=== PATIENT | male | born 1965 | race African-American/Black ===

== ENCOUNTER 2022-07-22 10:04 | Inpatient (IN) | payer OTHER ==
[2022-07-22 11:01] VITALS: BMI 28.7
[2022-07-22] MEDS ORDERED: DICYCLOMINE HCL 10 MG CAPSULE PO PRN (11:43)
[2022-07-22] MEDS ORDERED: NICOTINE 10 MG CARTRIDGE (INHALER) IH PRN (11:43)
[2022-07-22] MEDS ORDERED: IBUPROFEN 400 MG TABLET (FP) PO PRN (11:43)
[2022-07-22] MEDS ORDERED: NICOTINE POLACRILEX 2 MG GUM BUC PRN (11:43)
[2022-07-22] MEDS ORDERED: MAG HYDROX/AL HYDROX/SIMETH 30 ML UNIT-DOSE CUP PO PRN (11:43)
[2022-07-22] MEDS ORDERED: MAGNESIUM HYDROX 2400MG/30ML ORAL SUSPENSION 30 ML CUP PO PRN (11:43)
[2022-07-22] MEDS ORDERED: POLYETHYLENE GLYCOL (HEALTHYLAX) 3350 17 GM PACKET PO PRN (11:43)
[2022-07-22] MEDS ORDERED: BENZOCAINE/MENTHOL (CHLORASEPTIC ) LOZENGE MM PRN (11:43)
[2022-07-22] MEDS ORDERED: ACETAMINOPHEN 325 MG TABLET (FP) PO PRN ×2 (11:43)
[2022-07-22] MEDS ORDERED: BISMUTH SUBSALICYLATE 262 MG/15 ML BTL PO PRN (11:43)
[2022-07-22] MEDS: amLODIPine BESYLATE 10 MG TABLET (FP) PO SCH (13:17)
[2022-07-22] MEDS: ASPIRIN 81 MG CHEWABLE TABLETS PO SCH (13:17)
[2022-07-22] MEDS: METHOCARBAMOL 500 MG TABLET PO PRN (13:18)
[2022-07-22] MEDS: hydrOXYzine PAMOATE 25 MG CAPSULE (FP) PO PRN (13:18)
[2022-07-22] MEDS: NICOTINE 14 MG/24 HOURS TOPICAL PATCH TD SCH (13:21)
[2022-07-22] MEDS: MELATONIN 5 MG TABLETS PO SCH (22:41)
[2022-07-22] MEDS: THIAMINE HCL 100 MG TABLET (FP) PO SCH (22:42)
[2022-07-22] MEDS: MINERAL OIL/PETROLAT/WATER TOPICAL CREAM 113 GM JAR TP SCH (22:43)
[2022-07-23] MEDS: MINERAL OIL/PETROLAT/WATER TOPICAL CREAM 113 GM JAR TP SCH ×2 (10:06→22:50)
[2022-07-23] MEDS: diazePAM 5 MG TABLET PO SCH ×3 (10:06→22:50)
[2022-07-23] MEDS: ONDANSETRON *ODT* 4 MG TABLET SL PRN (10:06)
[2022-07-23] MEDS: amLODIPine BESYLATE 10 MG TABLET (FP) PO SCH (10:06)
[2022-07-23] MEDS: ASPIRIN 81 MG CHEWABLE TABLETS PO SCH (10:06)
[2022-07-23] MEDS: PRENATAL VITAMINS W/ FOLIC ACID TABLET (FP) PO SCH (10:06)
[2022-07-23] MEDS: NICOTINE 14 MG/24 HOURS TOPICAL PATCH TD SCH (10:11)
[2022-07-23 12:25] LABS: HEMATOCRIT 39.4 % (35.4-49); HEMOGLOBIN 12.9 GM/dL (11.7-16.9); MCHC 32.8 g/dl (32.0-35.9); MEAN CELL VOLUME 97.4 fl (80-96); MEAN PLT VOLUME 7.9 fl (7.5-11.1); PLATELET COUNT 230 10^3/uL (134-434); RBC 4.04 M/mm3 (4.00-5.60); RDW 13.5 % (11.9-15.9)
[2022-07-23 12:51] LABS: BLOOD UREA NITROGEN 20.7 mg/dL (7-18); CALCIUM 8.9 mg/dL (8.5-10.1)
[2022-07-23 12:52] LABS: ALBUMIN 3.1 g/dl (3.4-5.0)
[2022-07-23 12:55] LABS: CREATININE 0.8 mg/dL (0.55-1.3)
[2022-07-23 12:57] LABS: BILIRUBIN,TOTAL 0.4 mg/dL (0.2-1); TOT PROT 6.1 g/dl (6.4-8.2)
[2022-07-23] MEDS: THIAMINE HCL 100 MG TABLET (FP) PO SCH (22:48)
[2022-07-23] MEDS: MELATONIN 5 MG TABLETS PO SCH (22:50)
[2022-07-24] MEDS: diazePAM 5 MG TABLET PO SCH ×4 (06:48→21:59)
[2022-07-24] MEDS: PRENATAL VITAMINS W/ FOLIC ACID TABLET (FP) PO SCH (10:37)
[2022-07-24] MEDS: MINERAL OIL/PETROLAT/WATER TOPICAL CREAM 113 GM JAR TP SCH ×2 (10:37→22:04)
[2022-07-24] MEDS: ASPIRIN 81 MG CHEWABLE TABLETS PO SCH (10:38)
[2022-07-24] MEDS: amLODIPine BESYLATE 10 MG TABLET (FP) PO SCH (10:38)
[2022-07-24] MEDS: hydrOXYzine PAMOATE 25 MG CAPSULE (FP) PO PRN ×2 (10:38→21:57)
[2022-07-24] MEDS: ONDANSETRON *ODT* 4 MG TABLET SL PRN (10:38)
[2022-07-24] MEDS: NICOTINE 14 MG/24 HOURS TOPICAL PATCH TD SCH (10:47)
[2022-07-24] MEDS: LOPERAMIDE HCL 2 MG CAPSULE PO PRN (19:55)
[2022-07-24] MEDS: IBUPROFEN 600 MG TABLET (FP) PO PRN (19:55)
[2022-07-24] MEDS: THIAMINE HCL 100 MG TABLET (FP) PO SCH (21:57)
[2022-07-24] MEDS: METHOCARBAMOL 500 MG TABLET PO PRN (21:57)
[2022-07-24] MEDS: MELATONIN 5 MG TABLETS PO SCH (21:57)
[2022-07-25] MEDS: diazePAM 5 MG TABLET PO SCH ×3 (06:11→22:35)
[2022-07-25] MEDS: amLODIPine BESYLATE 10 MG TABLET (FP) PO SCH (10:46)
[2022-07-25] MEDS: PRENATAL VITAMINS W/ FOLIC ACID TABLET (FP) PO SCH (10:46)
[2022-07-25] MEDS: ASPIRIN 81 MG CHEWABLE TABLETS PO SCH (10:46)
[2022-07-25] MEDS: MINERAL OIL/PETROLAT/WATER TOPICAL CREAM 113 GM JAR TP SCH ×2 (10:49→22:34)
[2022-07-25] MEDS: NICOTINE 14 MG/24 HOURS TOPICAL PATCH TD SCH (10:49)
[2022-07-25] MEDS: IBUPROFEN 600 MG TABLET (FP) PO PRN ×2 (13:57→22:34)
[2022-07-25] MEDS: METHOCARBAMOL 500 MG TABLET PO PRN ×2 (13:58→22:34)
[2022-07-25 14:23] LABS: HEMOGLOBIN 12.1 GM/dL (11.7-16.9); MCH 31.9 pg (25.7-33.7); MCHC 32.7 g/dl (32.0-35.9); MEAN CELL VOLUME 97.3 fl (80-96); MEAN PLT VOLUME 8.2 fl (7.5-11.1); PLATELET COUNT 205 10^3/uL (134-434)
[2022-07-25] MEDS: hydrOXYzine PAMOATE 25 MG CAPSULE (FP) PO PRN (18:02)
[2022-07-25] MEDS: LOPERAMIDE HCL 2 MG CAPSULE PO PRN (18:15)
[2022-07-25] MEDS: THIAMINE HCL 100 MG TABLET (FP) PO SCH (22:34)
[2022-07-25] MEDS: MELATONIN 5 MG TABLETS PO SCH (22:34)
[2022-07-26] MEDS: diazePAM 5 MG TABLET PO SCH ×2 (05:41→17:53)
[2022-07-26] MEDS: MINERAL OIL/PETROLAT/WATER TOPICAL CREAM 113 GM JAR TP SCH ×2 (10:03→22:12)
[2022-07-26] MEDS: NICOTINE 14 MG/24 HOURS TOPICAL PATCH TD SCH (10:03)
[2022-07-26] MEDS: ASPIRIN 81 MG CHEWABLE TABLETS PO SCH (10:04)
[2022-07-26] MEDS: amLODIPine BESYLATE 10 MG TABLET (FP) PO SCH (10:04)
[2022-07-26] MEDS: PRENATAL VITAMINS W/ FOLIC ACID TABLET (FP) PO SCH (10:04)
[2022-07-26] MEDS: METHOCARBAMOL 500 MG TABLET PO PRN (10:06)
[2022-07-26] MEDS: IBUPROFEN 600 MG TABLET (FP) PO PRN (10:06)
[2022-07-26] MEDS: MELATONIN 5 MG TABLETS PO SCH (22:11)
[2022-07-26] MEDS: THIAMINE HCL 100 MG TABLET (FP) PO SCH (22:11)
[2022-07-27] MEDS ORDERED: diazePAM 5 MG TABLET PO ONE (06:00)
[2022-07-27 09:27] VITALS: BP 158/79; PULSE 80; RESP 19; TEMP 98
[2022-07-27] MEDS: PRENATAL VITAMINS W/ FOLIC ACID TABLET (FP) PO SCH (09:50)
[2022-07-27] MEDS: ASPIRIN 81 MG CHEWABLE TABLETS PO SCH (09:51)
[2022-07-27] MEDS: amLODIPine BESYLATE 10 MG TABLET (FP) PO SCH (09:51)
[2022-07-27] MEDS: MINERAL OIL/PETROLAT/WATER TOPICAL CREAM 113 GM JAR TP SCH (09:51)
[2022-07-27] MEDS: NICOTINE 14 MG/24 HOURS TOPICAL PATCH TD SCH (09:51)
== END 2022-07-27 11:21 | disposition home or self-care (01) | DRG 774 ==
LOC: YASAS 10:04 → Y6N 12:24
PROVIDERS: ADMIT Allergy & Immunology; ATTEND Surgery
PROC: HZ2ZZZZ Detoxification Services for Substance Abuse Treatment (ICD-10-PCS; principal; 2022-07-22)
DX: F10.230 Alcohol dependence with withdrawal, uncomplicated (principal); F14.20 Cocaine dependence, uncomplicated; F16.20 Hallucinogen dependence, uncomplicated; F17.210 Nicotine dependence, cigarettes, uncomplicated; I10 Essential (primary) hypertension; L85.3 Xerosis cutis; M25.561 Pain in right knee; R76.11 Nonspecific reaction to tuberculin skin test without active tuberculosis; Z99.89 Dependence on other enabling machines and devices; Z28.310 Unvaccinated for COVID-19; Z28.9 Immunization not carried out for unspecified reason
CPT/HCPCS: 36415; 71046-TC-FY; 73564-TC-RT-FY; 80053; 85025; 85027; 85610; 85651; 85730; 86140; 86780; 99284-25; C9803-CS; Q0162; U0003; U0005

== ENCOUNTER 2022-07-26 11:54 | Emergency (ER) | payer OTHER ==
[2022-07-26 12:12] VITALS: BP 145/81; PULSE 85; RESP 17; TEMP 98.6; BMI 29.1
[2022-07-26] MEDS ORDERED: ACETAMINOPHEN 1000 MG/100 ML BAG IVPB ONE (12:57)
[2022-07-26] MEDS ORDERED: ACETAMINOPHEN INJECTION 100 ML IVPB ONE (13:02)
[2022-07-26 14:20] LABS: BASO % 0.2 % (0-2.0); EOS % 11.5 % (0-4.5); HEMOGLOBIN 12.5 GM/dL (11.7-16.9); LYMPH % 23.5 % (8-40); MCH 32.4 pg (25.7-33.7); MCHC 32.8 g/dl (32.0-35.9); MEAN CELL VOLUME 98.6 fl (80-96); MEAN PLT VOLUME 8.3 fl (7.5-11.1); MONO % 11.9 % (3.8-10.2); NEUT % 52.9 % (42.8-82.8); PLATELET COUNT 241 10^3/uL (134-434); RBC 3.85 M/mm3 (4.00-5.60); RDW 13.1 % (11.9-15.9); WHITE BLOOD COUNT 12.4 K/mm3 (4.0-10.0)
[2022-07-26 14:26] LABS: INR 1.2 (0.83-1.09); PROTHROMBIN TIME (PATIENT) 13.9 SEC (9.7-13.0)
[2022-07-26 14:29] LABS: ACTIVATED PTT 36.8 SECONDS (25.2-36.5)
[2022-07-26 14:34] LABS: ALBUMIN 2.9 g/dl (3.4-5.0)
[2022-07-26 14:35] LABS: BLOOD UREA NITROGEN 9.6 mg/dL (7-18); CALCIUM 8.8 mg/dL (8.5-10.1)
[2022-07-26 14:38] LABS: CREATININE 0.8 mg/dL (0.55-1.3)
[2022-07-26 14:40] LABS: BILIRUBIN,TOTAL 0.5 mg/dL (0.2-1); TOT PROT 6.1 g/dl (6.4-8.2)
== END 2022-07-26 16:17 | disposition short-term general hospital (02) ==
LOC: JER 11:54
PROC: 3E0333Z Introduction of Anti-inflammatory into Peripheral Vein, Percutaneous Approach (ICD-10-PCS; principal; 2022-07-26)
DX: M25.561 Pain in right knee (principal)
CPT/HCPCS: 36415; 73564-TC-RT-FY; 80053; 85025; 85610; 85651; 85730; 86140; 99284-25